=== PATIENT | male | born 1990 | race Caucasian/White ===

== ENCOUNTER 2018-06-21 13:30 | Emergency (ER) | payer OTHER | END 2018-06-21 13:57 | disposition home or self-care (01) | LOC: SCSER 13:30 | DX: R11.0 Nausea (principal); F41.9 Anxiety disorder, unspecified; F90.9 Attention-deficit hyperactivity disorder, unspecified type; Z79.899 Other long term (current) drug therapy | CPT/HCPCS: 99283 ==